=== PATIENT | male | born 1955 | race Asian ===

== ENCOUNTER 2017-04-28 18:21 | Emergency (ER) | payer OTHER ==
[~2017-04-28] VITALS: Ht 162.6 cm; Wt 82.3 kg
[2017-04-28 18:47] VITALS: BP 134/79
[2017-04-28 18:53] VITALS: BP 140/70
--- NOTE | 2017-04-28 22:00 | NUR ---
PATIENT CALLED NO RESPONSE
--- NOTE | 2017-04-28 22:05 | NUR ---
CALLED FOR THE SECOND TIME NO RESPONSE
--- NOTE | 2017-04-28 22:11 | NUR ---
patient called to bed, no response,PATIENT LEFT WITHOUT BEING SEEN BY DR. CALDWELL. NO FURTHER CARE PROVIDED FOR PATIENT.
== END 2017-04-28 22:11 | disposition left against medical advice (07) ==
LOC: MED 18:21
DX: R03.0 Elevated blood-pressure reading, without diagnosis of hypertension (principal); Z53.21 Procedure and treatment not carried out due to patient leaving prior to being seen by health care provider

== ENCOUNTER 2017-05-01 19:11 | Observation (INO) | payer OTHER ==
[~2017-05-01] VITALS: Ht 162.6 cm; Wt 83.9 kg
[2017-05-01 19:29] VITALS: BP 112/72
--- NOTE | 2017-05-01 19:35 | NUR ---
TO LOBBY A/W, GREER TORRES, OSMANY NOTED
--- NOTE | 2017-05-01 20:49 | NUR ---
PT TAKEN TO OF3
--- NOTE | 2017-05-01 20:53 | NUR ---
PATIENT PRESENTS TO ED WITH HIGH BP FOR 2 WEEKS NOW, ANXIETY ATTACK . PT STATES HE TOOK LISINOPRIL 20MG BUT STILL HIGH .PT DENIES N/V/D; SKIN IS PINK/WARM/DRY; AAOX4 WITH EVEN AND STEADY GAIT; LUNGS CLEAR BL; HR EVEN AND REGULAR; PT DENIES ANY FEVER, CP, SOB, OR COUGH AT THIS TIME; PATIENT STATES PAIN OF 0/10 AT THIS TIME; VSS; PATIENT POSITIONED FOR COMFORT; HOB ELEVATED; BEDRAILS UP X2; BED DOWN. ER MD MADE AWARE OF PT STATUS.
[2017-05-01 22:22] LABS: HEMATOCRIT 46.7 % (36-52); HEMOGLOBIN 14.9 g/dL (12.0-18.0); MEAN CORPUSCULAR HEMOGLOBIN 27 pg (27-31); MEAN CORPUSCULAR HGB CONC 32 g/dL (33-37); MEAN CORPUSCULAR VOLUME 85 fL (80-94); PLATELET COUNT (AUTO) 370 K/uL (140-450); RED CELL DISTRIBUTION WIDTH 12.5 % (11.6-13.7)
[2017-05-01 22:34] LABS: ANION GAP 13.3 (8-16); CARBON DIOXIDE 28.7 mmol/L (21-32); CREATININE 0.9 mg/dL (0.7-1.3)
[2017-05-01 22:36] LABS: ALBUMIN 4.1 g/dL (3.4-5.0); TOTAL BILIRUBIN 0.3 mg/dL (0.0-1.0)
--- NOTE | 2017-05-01 22:39 | NUR ---
Patient discharged with v/s stable. Written and verbal after care instructions given and explained. Patient verbalized understanding. Ambulatory with steady gait. All questions addressed prior to discharge. Advised to follow up with PMD.
--- NOTE | 2017-05-01 23:04 | NUR ---
PT CALLED BACK TO ER FOR ER MD RE-EVAL BY ER MD DR ALVA
--- NOTE | 2017-05-01 23:08 | NUR ---
CALLED PT SISTER TO LEAVE V-MAIL BUT N/A [phone] ER FOR ER RE-EVAL BY ER MD DR ALVA
--- NOTE | 2017-05-02 00:02 | NUR ---
2ND CALL-PT CALLED BACK TO ER FOR ER MD RE-EVAL BY ER MD DR ALVA
--- NOTE | 2017-05-02 01:37 | NUR ---
3RD CALL-CALLED BACK TO ER FOR ER MD RE-EVAL BY ER MD DR ALVA. SPOKE TO MR BRITTNY HE WILL COME BACK TO [facility] ER [place]
[2017-05-02] MEDS ORDERED: ASPIRIN 325 MG TAB PO ONE (02:05)
--- NOTE | 2017-05-02 02:15 | NUR ---
PT TAKEN TO BED 11
--- NOTE | 2017-05-02 02:45 | NUR ---
Patient appears to be resting comfortably in bed. Vital Signs within normal limits. Respirations even and unlabored.
[2017-05-02 03:14] LABS: PROTHROMBIN TIME 10.4 secs (10.8-13.4)
--- NOTE | 2017-05-02 07:30 | NUR ---
RECEIVED PT FROM ER NURSE JUDIE. PT'S DIAGNOSIS IS N-STEMI, R/O ACS. PT DOES NOT C/O OF CP AT THIS TIME. PT TROP ELEVATED TO 0.072. WILL REPORT TO DOCTOR AND FOLLOW UP WITH ORDERS. IV NOTED TO THE RIGHT FA. 18G. INFUSING WELL. NO INFILTRATION. PT WAS ORIENTED TO RM. ADMISSION HISTORY DONE. SAFETY MEASURES MET. CALL LIGHT WITHIN REACH. WILL CONTINUE TO MONITOR. Addendum: 05/02/17 at 1708 by Morris Dennis RN WRONG TIME ENTERED. PT ARRIVED TO THE UNIT AT 0840.
[2017-05-02 08:45] VITALS: BP 128/73
--- NOTE | 2017-05-02 09:30 | NUR ---
SPOKE WITH DR DUMONT. REPORTED TROP LEVEL. ORDERED STRESS TEST, ECHO AND REDRAW TROP.
[2017-05-02] MEDS ORDERED: ONDANSETRON 4 MG/2 ML VIAL IVP PRN (11:35)
[2017-05-02] MEDS ORDERED: MORPHINE SULFATE 2 MG/ML SYR IVP PRN (11:35)
[2017-05-02] MEDS ORDERED: ACETAMINOPHEN 325 MG TAB PO PRN (11:35)
[2017-05-02 12:00] VITALS: BP 123/73
--- NOTE | 2017-05-02 15:30 | NUR ---
STRESS TEST DONE AT 1330. ECHO DONE AT 1530
[2017-05-02 16:00] VITALS: BP 135/82
[2017-05-02] MEDS ORDERED: PNEUMOCOCCAL VACCINE 23 MCG/0.5 ML VIAL IMVAC SCH (16:00)
[2017-05-02] MEDS ORDERED: METO25TA PO (16:04)
[2017-05-02] MEDS ORDERED: LISI-420 PO (16:04)
[2017-05-02] MEDS ORDERED: ALPR0.252 PO (16:05)
[2017-05-02] MEDS ORDERED: ORE25 PO (16:06)
--- NOTE | 2017-05-02 16:10 | NUR ---
PT C/O HEADACHE, WANTS TYLENOL, MEDICATION WAS GIVEN.
[2017-05-02] MEDS ORDERED: PNEUMOCOCCAL VACCINE 23 MCG/0.5 ML VIAL ONE (16:15)
[2017-05-02] MEDS ORDERED: ACETAMINOPHEN 325 MG TAB ONE ×2 (16:16→16:33)
--- NOTE | 2017-05-02 16:50 | NUR ---
PT WAS DISCHARGED PER DR IRWIN. CONTINUE WITH HOME MEDS, DISCHARGE INSTRUCTION GIVEN, PT VERBALIZED UNDERSTANDING. IV DC'ED, TIP INTACT, PRESSURE APPLIED. PT DENIES ANY CHEST PAIN AT THIS TIME, PT LEFT IN STABLE CONDITION. LAST TROP I DRAW, NEGATIVE. STRESS AND ECHO TESTS WERE DONE. VITALS TAKEN AND DOCUMENTED. PT LEFT WITH ALL HIS BELONGINGS.
--- NOTE | 2017-05-02 17:06 | NUR ---
SPOKE WITH DR DUMONT. REPORTED TROP LEVEL. ORDERED STRESS TEST, ECHO AND REDRAW TROP. Addendum: 05/02/17 at 1707 by Morris Dennis RN WRONG TIME ENTERED.
[2017-05-02] MEDS ORDERED: METOPROLOL 25 MG TAB PO SCH (21:00)
[2017-05-02] MEDS ORDERED: ALPRAZolam 0.25 MG TAB PO PRN (21:00)
[2017-05-03] MEDS ORDERED: LISINOPRIL 20 MG TAB PO SCH (09:00)
[2017-05-03] MEDS ORDERED: ASPIRIN 81 MG TAB.CHEW PO SCH (09:00)
[2017-05-03] MEDS ORDERED: HYDROCHLOROTHIAZIDE 25 MG TAB PO SCH (09:00)
[2017-05-03] MEDS ORDERED: ENOXAPARIN 40 MG/0.4 ML SYR SUBQ SCH (09:00)
== END 2017-05-02 17:00 | disposition home or self-care (01) ==
LOC: MED 19:11 → INTOOBSV 05-02 04:22 → MTU 05-02 04:22
PROVIDERS: ADMIT Hospitalist; ATTEND Hospitalist
DX: R07.89 Other chest pain (principal); I10 Essential (primary) hypertension; I21.4 Non-ST elevation (NSTEMI) myocardial infarction; R79.89 Other specified abnormal findings of blood chemistry; Z23 Encounter for immunization
CPT/HCPCS: 36415; 71045; 80053; 83880; 84484; 85025; 85610; 85730; 87081; 90471; 90732; 93005; 93017; 93307; 99285; G0378; Q0092

== ENCOUNTER 2018-08-03 19:03 | Emergency (ER) | payer OTHER ==
[~2018-08-03] VITALS: Ht 165.1 cm; Wt 81.6 kg
[~2018-08-03 19:03] MED LIST: ALPR0.252 PO; LISI-420 PO; METO25TA PO; ORE25 PO
[2018-08-03 19:20] VITALS: BP 177/75
--- NOTE | 2018-08-03 20:35 | NUR ---
PT AMBULATED TO BED 12
--- NOTE | 2018-08-03 20:52 | NUR ---
PT BIB SELF C/O HIGH BLOOD PRESSURE. PT STATES HE WENT TO WORK AND FELT LIKE HIS BLOOD PRESSURE WAS HIGH, STATES BP WAS IN THE 150S/80S AT WORK. +COUGH X1 WEEK; +NAUSEA. PT STATES HE IS COMPLIANT W/ HOME MEDS. --PT ACTING APPROPRIATLY, LUNG SOUNDS CLEAR BL. BOWEL SOUNDS ACTIVE X4 QUAD. DENIES BLURRIED VISION, EPIGASTRIC PAIN, CP, OR LOC. SPEECH CLEAR. PMH: HTN, CARDIAC RX: METROPOLOL, LISINOPRIL
--- NOTE | 2018-08-03 21:00 | NUR ---
PT TO X-RAY VIA WHEELCHAIR BY TECH.
--- NOTE | 2018-08-03 21:41 | NUR ---
DR. LOCKWOOD AT BEDSIDE FOR EVALUATION.
--- NOTE | 2018-08-03 22:02 | NUR ---
EKG PERFORMED AT BEDSIDE. PT COVERED IN GOWN DURING PROCEDURE
[2018-08-03 22:03] LABS: BASOPHILS % (AUTO) 0.6 % (0.0-2.0); EOSINOPHILS # (AUTO) 0.1 K/uL (0-0.4); EOSINOPHILS % (AUTO) 1.1 % (0.0-4.0); HEMATOCRIT 41.7 % (36-52); HEMOGLOBIN 13.7 g/dL (12.0-18.0); LYMPHOCYTES # (AUTO) 1.6 K/uL (2.0-11.5); LYMPHOCYTES % (AUTO) 23.1 % (20.5-51.1); MEAN CORPUSCULAR HEMOGLOBIN 28 pg (27-31); MEAN CORPUSCULAR HGB CONC 33 g/dL (33-37); MEAN CORPUSCULAR VOLUME 85.5 fL (80-94); MONOCYTES # (AUTO) 0.8 K/uL (0.8-1.0); MONOCYTES % (AUTO) 11.2 % (1.7-9.3); NEUTROPHILS # (AUTO) 4.5 K/uL (1.8-7.7); PLATELET COUNT (AUTO) 302 K/uL (140-450); RED BLOOD CELL COUNT(AUTO) 4.88 MIL/uL (4.20-6.10); RED CELL DISTRIBUTION WIDTH 13.5 % (11.6-13.7)
[2018-08-03 22:23] LABS: ALBUMIN 3.7 g/dL (3.4-5.0); ANION GAP 12.1 (8-16); CARBON DIOXIDE 25.4 mmol/L (21-32); CREATININE 0.9 mg/dL (0.7-1.3); POTASSIUM 3.5 mmol/L (3.5-5.1); TOTAL BILIRUBIN 0.3 mg/dL (0.0-1.0)
[2018-08-03 22:55] VITALS: BP 138/80
== END 2018-08-03 22:55 | disposition home or self-care (01) ==
LOC: MED 19:03
DX: J06.9 Acute upper respiratory infection, unspecified (principal); I10 Essential (primary) hypertension; Z79.899 Other long term (current) drug therapy
CPT/HCPCS: 36415; 71046; 80053; 83880; 84484; 85025; 93005; 99284